=== PATIENT | male | born 1985 | race Caucasian/White ===

== ENCOUNTER 2020-05-20 12:51 | Outpatient (CLI) | payer SELFPAY ==
[2020-05-23 21:31] LABS: COVID-19 RT-PCR Result NEGATIVE (Negative)
== END 2020-05-20 13:11 ==
PROVIDERS: PCP Nurse Practitioner; Visit Provider Nurse Practitioner
DX: Z20.828 Contact with and (suspected) exposure to other viral communicable diseases (principal)
CPT/HCPCS: U0003